=== PATIENT | female | born 1980 | race Caucasian/White ===

== ENCOUNTER 2023-04-03 02:09 | Emergency (ER) | payer SELFPAY ==
[~2023-04-03] VITALS: Ht 154.9 cm; Wt 50.0 kg
[2023-04-03 02:46] VITALS: TEMP 97.7
[2023-04-03 04:26] VITALS: BP 110/66; PULSE 90; RESP 15
[2023-04-03] MEDS ORDERED: SULF1TAB42 PO (04:28)
[2023-04-03] MEDS ORDERED: CEPH-558 PO (04:28)
[2023-04-03] MEDS ORDERED: CEPHALEXIN MONOHYDRATE 500 MG CAPSULE PO ONE (04:30)
[2023-04-03] MEDS ORDERED: SULFAMETHOX/TRIMETH DS 800-160 MG/TABLET PO ONE (04:30)
== END 2023-04-03 04:43 | disposition home or self-care (01) ==
LOC: EMS 02:14
DX: L03.032 Cellulitis of left toe (principal); S90.425A Blister (nonthermal), left lesser toe(s), initial encounter; F12.90 Cannabis use, unspecified, uncomplicated; X58.XXXA Exposure to other specified factors, initial encounter; Y93.89 Activity, other specified; Y92.89 Other specified places as the place of occurrence of the external cause; Y99.8 Other external cause status
CPT/HCPCS: 99283